=== PATIENT | male | born 1980 ===

== ENCOUNTER 2018-01-22 11:11 | Observation (INO) | payer MEDICAID, OTHER ==
[2018-01-22 11:40] LABS: BASO % 0.3 % (0.0-2.0); EOS # 0.1 K/uL (0.0-0.7); EOS % 2.1 % (0.0-4.0); HEMOGLOBIN 14.6 g/dL (12.0-18.0); LYMPH # 2.2 K/uL (1.0-4.3); LYMPH % 42.3 % (20.0-40.0); MEAN CELL VOLUME 88.6 fL (80.0-94.0); MEAN CORPUSCULAR HEMOGLOBIN 30.6 pg (27.0-31.0); MEAN CORPUSCULAR HGB CONC 34.6 g/dL (33.0-37.0); MEAN PLATELET VOLUME 8.7 fL (7.2-11.7); MONO # 0.5 K/uL (0.0-0.8); MONO % 8.9 % (0.0-10.0); NEUT # 2.4 K/uL (1.8-7.0); NEUT % 46.4 % (50.0-75.0); RBC 4.77 Mil/uL (4.40-5.90); WHITE BLOOD COUNT 5.2 K/uL (4.8-10.8)
--- NOTE | 2018-01-22 11:40 | C.PDOC ---
History Of Present Illness Patient BIBA for chest pain and possible abnornal EKG from a medical clinic. Patient states he has been having intermittent left sided sharp , nonradiating chest pain for the last 6 months, worse in the last 3 weeks. Patient was being seen today at a clinic where he had outpatient blood work done, was having chest pain and whyen EKG was done clinic called [id number]. Patient given PO ASA and SL nitro in the field, no improvement of chest pain with nitro. He denies SOB, palpitations, abdominal pain, nausea/vomiting. Time Seen by Provider: 01/22/18 11:17 Chief Complaint (Nursing): Chest Pain History Per: Patient History/Exam Limitations: no limitations Onset/Duration Of Symptoms: Days Current Symptoms Are (Timing): Still Present Severity: Mild Quality: "Pain" Past Medical History Reviewed: Historical Data, Nursing Documentation, Vital Signs Vital Signs: Last Vital Signs Temp 98.6 F 01/22/18 11:17 Pulse 65 01/22/18 11:17 Resp 18 01/22/18 11:17 BP 114/66 01/22/18 11:17 Pulse Ox 96 01/22/18 12:34 - Medical History PMH: Hyperlipidemia Family History: States: Diabetes (father) - Social History Hx Alcohol Use: No Hx Substance Use: No - Immunization History Hx Tetanus Toxoid Vaccination: No Hx Influenza Vaccination: Yes Hx Pneumococcal Vaccination: No Review Of Systems Constitutional: Negative for: Fever, Chills Cardiovascular: Positive for: Chest Pain. Negative for: Palpitations Respiratory: Negative for: Cough, Shortness of Breath Gastrointestinal: Negative for: Nausea, Vomiting, Abdominal Pain, Diarrhea Physical Exam - Physical Exam Appears: Well, Non-toxic, No Acute Distress Head: Normacephalic Eye(s): bilateral: Normal Inspection Oral Mucosa: Moist Cardiovascular: Rhythm Regular Respiratory: Normal Breath Sounds, No Rales, No Rhonchi, No Wheezing Gastrointestinal/Abdominal: Normal Exam, Bowel Sounds, Soft, No Tenderness Extremity: Normal ROM, No Pedal Edema, No Calf Tenderness Pulses: Left Dorsalis Pedis: Normal, Right Dorsalis Pedis: Normal Neurological/Psych: Oriented x3 ED Course And Treatment - Laboratory Results Result Diagrams: 01/22/18 11:36 01/22/18 11:36 ECG: Interpreted By Me, Viewed By Me (NSR 62 bpm, normal axis, no acute ST/T wave changes) ECG Interpretation: Normal O2 Sat by Pulse Oximetry: 96 (RA) Pulse Ox Interpretation: Normal - Other Rad CXR X-Ray: Viewed By Me, Read By Radiologist Interpretation: Accession No. : [id number]. Patient Name / ID : FOLEY / [id number]. Exam Date : 01/22/2018 11:40:55 ( Approved ). Study Comment : Sex / Age : M / [id number]. Creator : Sean Grewal MD. Dictator : Sean Grewal MD. Database Report Writer : Car Repairer Pullman : Sean Grewal MD. Approver2 : Report Date : 01/22/2018 12:11:43. My Comment : . Date of service: 01/22/2018. PROCEDURE: CHEST RADIOGRAPH, 1 VIEW. HISTORY: CP. COMPARISON: None available. FINDINGS: LUNGS: Clear. PLEURA: No pneumothorax or pleural fluid seen. CARDIOVASCULAR: Normal. OSSEOUS STRUCTURES: No significant abnormalities. VISUALIZED UPPER ABDOMEN: Normal. OTHER FINDINGS: None. IMPRESSION: No active disease. Progress Note: Blood work, CXR, EKG ordered and reviewed. ASA and nitro given in the field. Patient has outpatient blood work with him confirming elevated lipids/triglycerides. Disposition - Disposition Forms: [employer] ([place])
[2018-01-22 11:48] LABS: INR 1.1
[2018-01-22 11:52] LABS: ALB/GLOB RATIO 1.3 (1.0-2.1); ALBUMIN 4.2 g/dL (3.5-5.0); ALT/SGPT 96 U/L (21-72); AST/SGOT 66 U/L (17-59); BLOOD UREA NITROGEN 11 mg/dL (9-20); GFR AFRICAN-AMERICAN > 60; GFR NON-AFRICAN AMERICAN > 60
[2018-01-22 12:04] LABS: CK-MB 1.74 ng/mL (0.0-3.38)
--- NOTE | 2018-01-22 12:13 | RAD ---
Date of service: 01/22/2018 PROCEDURE: CHEST RADIOGRAPH, 1 VIEW HISTORY: CP COMPARISON: None available. FINDINGS: LUNGS: Clear. PLEURA: No pneumothorax or pleural fluid seen. CARDIOVASCULAR: Normal. OSSEOUS STRUCTURES: No significant abnormalities. VISUALIZED UPPER ABDOMEN: Normal. OTHER FINDINGS: None. IMPRESSION: No active disease.
[2018-01-22 14:17] LABS: BARBITURATES, UR NEGATIVE (NEGATIVE); BENZODIAZEPINES, UR NEGATIVE (NEGATIVE); OPIATES, UR NEGATIVE (NEGATIVE); PHENCYCLIDINE, UR NEGATIVE (NEGATIVE)
--- NOTE | 2018-01-22 17:51 | CP.PCM.HP ---
<Tiara Valiente - Last Filed: 01/22/18 16:31> History of Present Illness - History of Present Illness History of Present Illness: cc: chest pain Mr. Mares is a 37yo male who came up from the clinic for abnormal EKG and 6 months of chest pain, worsening over the last 3 weeks. The constant tight pressure is rated at a 6/10 with pinches 3-4/day increasing the pain to 9/10. The pain is pinpoint without radiation on the left midclavicular space directly beneath the rib in the 5th intercostal space. Deep inspiration makes it worse, but calming breaths make it better. Admits to his vision blurring occasionally associated with the chest pain. His daughter had the flu 3 months ago, resolved completely. Admits to intermittent bilateral numbness and tingling and chronic back Denies fever, chills, sweating, diaphoresis, palpitations, cough, shortness of breath, nausea, vomiting, weakness, dizziness, headache. Denies recent travel, sick contacts, changes in urination, saddle anesthesia, loss of bowel and bladder control. PMH: denies PSHx: none Home Meds: none Allergies: NKA Social: denies ever smoking, alcohol, illicit drugs FHx: father-HTN, DM2, CAD with stents age 58, brother-HLD, DM2, brother-DM2 PMD: Yaneth Allred Present on Admission - Present on Admission Any Indicators Present on Admission: No Review of Systems - Constitutional Constitutional: Weight Loss. absent: Chills, Excessive Sweating, Fever, Headache, Night Sweats - EENT Eyes: Blurred Vision. absent: Blind Spots, Diplopia, Dry Eye, Exophthalmos, Floaters, Itchy Eyes, Pain, Requires Corrective Lenses, Spots in Vision, Tunnel Vision Ears: absent: Decreased Hearing, Ear Discharge, Ear Pain, Tinnitus Nose/Mouth/Throat: absent: Epistaxis, Nasal Congestion, Nasal Discharge, Nasal Obstruction, Bleeding Gums, Dysphagia, Neck Pain - Cardiovascular Cardiovascular: Chest Pain, Chest Pain at Rest, Chest Pain with Activity. absent: Claudication, Diaphoresis, Dyspnea, Dyspnea on Exertion, Edema, Irregular Heart Rhythm, Pain Radiating to Arm/Neck/Jaw, Lightheadedness, Palpitations, Paroxysmal Nocturnal Dyspnea, Pedal Edema, Radiating Pain, Rapid Heart Rate - Respiratory Respiratory: Snoring, Pain on Inspiration. absent: Cough, Dyspnea, Hemoptysis, Dyspnea on Exertion, Wheezing - Gastrointestinal Gastrointestinal: absent: Abdominal Pain, Bloating, Change in Bowel Habits, Change in Stool Character, Constipation, Cramping, Diarrhea, Hematemesis, Hematochezia, Nausea, Vomiting - Genitourinary Genitourinary: absent: Change in Urinary Stream, Difficulty Urinating, Hematuria , Nocturia, Urinary Incontinence, Urinary Frequency, Urinary Hesitance, Urinary Urgency, Freq UTI - Musculoskeletal Musculoskeletal: Back Pain, Numbness, Tingling. absent: Abnormal Gait, Muscle Cramps Additional comments: chronic LBP - Integumentary Integumentary: Dry Skin. absent: Change in Hair, Change in Pigmentation, Pruritus, Rash, Skin Pain, Skin Ulcer, Sores, Swelling, Unusual Bruising, Wounds - Neurological Neurological: Numbness, Tingling. absent: Abnormal Gait, Confusion, Disequilibrium, Dizziness, Focal Weakness, Paresthesias Additional comments: bilateral numbness and tingling below both knees down leg - Psychiatric Psychiatric: absent: Behavioral Changes, Change in Appetite, Confusion, Difficulty Concentrating, Suicidal Ideation - Endocrine Endocrine: absent: Cold Intolorance, Excessive Sweating, Fatigue, Flushing, Heat Intolorance, Palpitations, Polyphagia - Hematologic/Lymphatic Hematologic: absent: Easy Bleeding, Easy Bruising Past Patient History - Past Social History Smoking Status: Never Smoked Alcohol: None Drugs: Denies - CARDIAC Hx Cardiac Disorders: No - PULMONARY Hx Respiratory Disorders: No - NEUROLOGICAL Hx Neurological Disorder: No - RENAL Hx Chronic Kidney Disease: No - PSYCHIATRIC Hx Substance Use: No - SURGICAL HISTORY Hx Surgeries: No - ANESTHESIA Hx Anesthesia: No Meds Allergies/Adverse Reactions: Allergies Allergy/AdvReac Type Severity Reaction Status Date / Time No Known Allergies Allergy Verified 01/22/18 11:23 Physical Exam - Constitutional Appears: Non-toxic, No Acute Distress - Head Exam Head Exam: ATRAUMATIC, NORMOCEPHALIC - Eye Exam Eye Exam: EOMI, Normal appearance, PERRL - ENT Exam ENT Exam: Mucous Membranes Moist, Normal Exam - Neck Exam Neck exam: Positive for: Normal Inspection. Negative for: Lymphadenopathy, Tenderness, Thyromegaly - Respiratory Exam Respiratory Exam: Clear to Auscultation Bilateral, NORMAL BREATHING PATTERN. absent: Rales, Rhonchi, Wheezes - Cardiovascular Exam Cardiovascular Exam: REGULAR RHYTHM, +S1, +S2. absent: Clicks, Systolic Murmur Additional comments: reproducible pain upon palpation on the lower border of rib 6 in 5th intercostal space, midclavicular. not worsened by rotation - GI/Abdominal Exam GI & Abdominal Exam: Normal Bowel Sounds, Soft. absent: Tenderness - Rectal Exam Additional comments: No gross bleeding. No evidence of hemorrhoids or other source of blood on URVASHI - Extremities Exam Extremities exam: Positive for: normal capillary refill, normal inspection, pedal pulses present Additional comments: line on both right and left antecubital fossa describes no numbness and tingling at the time - Neurological Exam Neurological exam: Alert, CN II-XII Intact, Normal Gait, Oriented x3, Reflexes Normal Additional comments: triceps and patellar reflexes intact bilaterally - Skin Skin Exam: Dry, Intact, Normal Color, Warm Results - Vital Signs Recent Vital Signs: Last Vital Signs Temp 98 F 01/22/18 16:15 Pulse 65 01/22/18 16:15 Resp 20 01/22/18 16:15 BP 111/71 01/22/18 16:15 Pulse Ox 96 01/22/18 16:15 - Labs Result Diagrams: 01/22/18 11:36 01/22/18 11:36 Labs: Laboratory Results - last 24 hr 01/22/18 01/22/18 01/22/18 11:36 11:36 11:36 WBC 5.2 RBC 4.77 Hgb 14.6 Hct 42.3 MCV 88.6 MCH 30.6 MCHC 34.6 RDW 14.0 Plt Count 170 MPV 8.7 Neut % (Auto) 46.4 L Lymph % (Auto) 42.3 H [place] % (Auto) 8.9 Eos % (Auto) 2.1 Baso % (Auto) 0.3 Neut # (Auto) 2.4 Lymph # (Auto) 2.2 [place] # (Auto) 0.5 Eos # (Auto) 0.1 Baso # (Auto) 0.0 PT 12.0 INR 1.1 APTT 35 H D-Dimer, Quantitative Sodium 139 Potassium 4.1 Chloride 103 Carbon Dioxide 27 Anion Gap 13 BUN 11 Creatinine 0.9 Est GFR ( Amer) > 60 Est GFR (Non-Af Amer) > 60 POC Glucose (mg/dL) Random Glucose 94 Calcium 9.0 Total Bilirubin 1.1 AST 66 H D ALT 96 H Alkaline Phosphatase 65 Total Creatine Kinase 523 H CK-MB (Mass) 1.74 Troponin I < 0.0120 Total Protein 7.3 Albumin 4.2 Globulin 3.1 Albumin/Globulin Ratio 1.3 Urine Opiates Screen Urine Methadone Screen Ur Barbiturates Screen Ur Phencyclidine Scrn Ur Amphetamines Screen U Benzodiazepines Scrn U Oth Cocaine Metabols U Cannabinoids Screen 01/22/18 01/22/18 01/22/18 11:50 13:39 14:03 WBC RBC Hgb Hct MCV MCH MCHC RDW Plt Count MPV Neut % (Auto) Lymph % (Auto) [place] % (Auto) Eos % (Auto) Baso % (Auto) Neut # (Auto) Lymph # (Auto) [place] # (Auto) Eos # (Auto) Baso # (Auto) PT INR APTT D-Dimer, Quantitative < 200 Sodium Potassium Chloride Carbon Dioxide Anion Gap BUN Creatinine Est GFR ( Amer) Est GFR (Non-Af Amer) POC Glucose (mg/dL) 90 Random Glucose Calcium Total Bilirubin AST ALT Alkaline Phosphatase Total Creatine Kinase CK-MB (Mass) Troponin I Total Protein Albumin Globulin Albumin/Globulin Ratio Urine Opiates Screen Negative Urine Methadone Screen Negative Ur Barbiturates Screen Negative Ur Phencyclidine Scrn Negative Ur Amphetamines Screen Negative U Benzodiazepines Scrn Negative U Oth Cocaine Metabols Negative U Cannabinoids Screen Negative Assessment & Plan (1) Atypical chest pain Assessment and Plan: Long standing chest pain, reproducible upon palpation. Lipid panel (06/24/17) TG 201 Chol 205 LDL 112 HDL 48 HbA1c (06/24/17) 5.5 lipid panel: f/u TSH: f/u free T4: f/u ROMIs and EKGs negative for ACS x2. f/u 3rd at 1930 ASA 81mg po daily ibuprofen 600mg po q6h prn rosuvastatin 10mg po hs Cardio consulted: Dr. Syed - help appreciated ASHWIN IFA screen: f/u RF: f/u Status: Acute (2) Elevated CK Assessment and Plan: 523 on admission maintenance fluids: 1L NS @ 147ml/hr Monitor. Status: Acute (3) Elevated LFTs Assessment and Plan: AST 66 ALT 96 on admission Monitor. Status: Acute (4) Sleep apnea Assessment and Plan: has prescription for sleep study outpatient Will give supplemental O2 or CPAP if O2 sat drops Status: Chronic (5) Prophylactic measure Assessment and Plan: DVT: BMI>30 -> bilateral SCDs GI: Pepcid 20mg po bid Heart healthy 2gNa diet Status: Acute <Serafin Frank Betzaida - Last Filed: 01/23/18 21:08> Results - Vital Signs Recent Vital Signs: Last Vital Signs Temp 97.9 F 01/23/18 15:40 Pulse 70 01/23/18 15:40 Resp 17 01/23/18 15:40 BP 127/78 01/23/18 15:40 Pulse Ox 97 01/23/18 15:40 - Labs Result Diagrams: 01/23/18 08:32 01/23/18 08:32 Labs: Laboratory Results - last 24 hr 01/22/18 01/23/18 01/23/18 20:13 08:32 08:32 WBC 4.7 L RBC 4.78 Hgb 14.7 Hct 43.2 MCV 90.4 MCH 30.8 MCHC 34.1 RDW 13.5 Plt Count 160 MPV 9.5 Neut % (Auto) 50.5 Lymph % (Auto) 36.6 [place] % (Auto) 10.2 H Eos % (Auto) 2.4 Baso % (Auto) 0.3 Neut # (Auto) 2.4 Lymph # (Auto) 1.7 [place] # (Auto) 0.5 Eos # (Auto) 0.1 Baso # (Auto) 0.0 Sodium 141 Potassium 4.3 Chloride 106 Carbon Dioxide 25 Anion Gap 14 BUN 10 Creatinine 0.8 Est GFR ( Amer) > 60 Est GFR (Non-Af Amer) > 60 Random Glucose 101 Calcium 8.9 Total Bilirubin 1.5 H AST 52 ALT 85 H Alkaline Phosphatase 65 Total Creatine Kinase 269 H Troponin I < 0.0120 Total Protein 6.9 Albumin 4.0 Globulin 2.8 Albumin/Globulin Ratio 1.4 Triglycerides 203 H Cholesterol 177 LDL Cholesterol Direct 113 HDL Cholesterol 31 Free T4 TSH 3rd Generation 1.05 01/23/18 08:32 WBC RBC Hgb Hct MCV MCH MCHC RDW Plt Count MPV Neut % (Auto) Lymph % (Auto) [place] % (Auto) Eos % (Auto) Baso % (Auto) Neut # (Auto) Lymph # (Auto) [place] # (Auto) Eos # (Auto) Baso # (Auto) Sodium Potassium Chloride Carbon Dioxide Anion Gap BUN Creatinine Est GFR ( Amer) Est GFR (Non-Af Amer) Random Glucose Calcium Total Bilirubin AST ALT Alkaline Phosphatase Total Creatine Kinase Troponin I Total Protein Albumin Globulin Albumin/Globulin Ratio Triglycerides Cholesterol LDL Cholesterol Direct HDL Cholesterol Free T4 0.83 TSH 3rd Generation Attending/Attestation - Attestation I have personally seen and examined this patient.: Yes I have fully participated in the care of the patient.: Yes I have reviewed all pertinent clinical information: Yes
[2018-01-22] MEDS: Sodium Chloride 0.9% 1,000 ML IV SCH (19:04)
--- NOTE | 2018-01-23 01:24 | CON ---
DATE: 01/22/2018 CARDIOLOGY CONSULTATION HISTORY OF PRESENT ILLNESS: The patient is a 37-year-old male, originally from [facility] who has no significant past medical history, presents because yesterday sharp left-sided chest pain, nonradiating and not associated with shortness of breath or diaphoresis. The patient is unaware of any prior cardiac history. The patient denies any recent chest trauma. The patient denies any recent fever or chills. SOCIAL HISTORY: Nonsmoker. Nondrinker. He works as a geriatric nurse assistant. He is with two young children. MEDICATIONS: The patient is on no medications at home. PAST MEDICAL HISTORY: Not significant. PHYSICAL EXAMINATION: GENERAL: The patient is a middle-aged male who does not appear to be in acute distress. VITAL SIGNS: Blood pressure 111/67, heart rate 58, temperature 98.6, respirations 12. HEENT: Normocephalic. NECK: No JVD. CHEST: Clear. HEART: S1 and S2 are regular. No gallop or pericardial rub. ABDOMEN: Soft. EXTREMITIES: No edema. No calf tenderness. IMAGING: Reviewed old EKGs, the ones were done in the field and one that was done in the emergency room revealed sinus rhythm with mild sinus bradycardia, early repolarization pattern; however, changes of pericarditis could not be excluded. Injury pattern is very unlikely because of the persistence of the pattern of ST elevation over a long period of time. Chest x-ray revealed prominent bronchovascular markings. LABORATORY DATA: SMA-7 is within normal limit. AST and ALT are 66 and 96 respectively. One set of troponin is negative. Total creatine kinase 523. INR is 1.1, PTT is 35. Hemoglobin, hematocrit, white count, and platelet count are within normal limit. ASSESSMENT: 1. Chest pain, unlikely it is myocardial injury. 2. Rule out acute pericarditis. RECOMMENDATIONS: Start aspirin at 81 mg once a day, Crestor 20 mg once a day. Obtain an echocardiogram, serum D-dimer, rheumatoid factor, and ASHWIN titers. Navin Syed MD
[2018-01-23] MEDS: Sodium Chloride 0.9% 1,000 ML IV SCH ×3 (02:40→15:43)
[2018-01-23 07:47] VITALS: O2SAT 97
[2018-01-23 08:56] LABS: BASO % 0.3 % (0.0-2.0); EOS # 0.1 K/uL (0.0-0.7); EOS % 2.4 % (0.0-4.0); HEMOGLOBIN 14.7 g/dL (12.0-18.0); LYMPH # 1.7 K/uL (1.0-4.3); LYMPH % 36.6 % (20.0-40.0); MEAN CELL VOLUME 90.4 fL (80.0-94.0); MEAN CORPUSCULAR HEMOGLOBIN 30.8 pg (27.0-31.0); MEAN CORPUSCULAR HGB CONC 34.1 g/dL (33.0-37.0); MEAN PLATELET VOLUME 9.5 fL (7.2-11.7); MONO # 0.5 K/uL (0.0-0.8); MONO % 10.2 % (0.0-10.0); NEUT # 2.4 K/uL (1.8-7.0); NEUT % 50.5 % (50.0-75.0); RBC 4.78 Mil/uL (4.40-5.90); RED CELL DISTRIBUTION WIDTH 13.5 % (11.5-14.5); WHITE BLOOD COUNT 4.7 K/uL (4.8-10.8)
[2018-01-23 09:12] LABS: ALB/GLOB RATIO 1.4 (1.0-2.1); ALT/SGPT 85 U/L (21-72); AST/SGOT 52 U/L (17-59); BLOOD UREA NITROGEN 10 mg/dL (9-20); CALCIUM 8.9 mg/dl (8.6-10.4); GFR AFRICAN-AMERICAN > 60; GFR NON-AFRICAN AMERICAN > 60; HDL CHOLESTEROL 31 mg/dL (30-70)
[2018-01-23 09:21] LABS: LDL CHOLESTEROL 113 mg/dL (0-129)
--- NOTE | 2018-01-23 09:38 | CP.PCM.PN ---
Subjective - Date & Time of Evaluation Date of Evaluation: 01/23/18 Time of Evaluation: 09:38 Objective - Vital Signs/Intake and Output Vital Signs (last 24 hours): Temp Pulse Resp BP Pulse Ox 97.8 F 54 L 20 118/71 97 01/23/18 07:00 01/23/18 07:35 01/23/18 07:00 01/23/18 07:00 01/23/18 07:00 - Medications Medications: Current Medications Aspirin (Aspirin Chewable) 81 mg PO DAILY [facility] Last Admin: 01/23/18 09:02 Dose: 81 mg Famotidine (Pepcid) 20 mg PO BID [facility] Last Admin: 01/23/18 09:02 Dose: 20 mg Heparin Sodium (Porcine) (Heparin) 5,000 units SC Q12 [facility] Last Admin: 01/23/18 09:02 Dose: 5,000 units Sodium Chloride (Sodium Chloride 0.9%) 1,000 mls @ 147 mls/hr IV .[id number] [facility] Last Admin: 01/23/18 08:41 Dose: 147 mls/hr Ibuprofen (Motrin Tab) 600 mg PO Q6H PRN PRN Reason: Pain, moderate (4-7) Last Admin: 01/22/18 18:32 Dose: 600 mg Rosuvastatin Calcium (Crestor) 10 mg PO HS [facility] Last Admin: 01/22/18 21:26 Dose: 10 mg - Labs Labs: 01/23/18 08:32 01/23/18 08:32 PT 12.0 SECONDS (9.7-12.2) 01/22/18 11:36 INR 1.1 01/22/18 11:36 APTT 35 SECONDS (21-34) H 01/22/18 11:36
[2018-01-23 16:15] VITALS: BP 127/78; PULSE 70; RESP 17; TEMP 97.9
--- NOTE | 2018-01-23 20:40 | PN ---
DATE: 01/23/2018 SUBJECTIVE: The patient denies any chest pain or shortness of breath. No reported arrhythmia. PHYSICAL EXAMINATION: VITAL SIGNS: Blood pressure 118/71, heart rate 55, temperature 97.8, respirations 20. HEENT: Normocephalic. CHEST: Clear. HEART: S1 and S2, regular. ABDOMEN: Soft. EXTREMITIES: No edema and no calf tenderness. IMAGING: Old EKGs revealed sinus rhythm with early repolarization present. Urine drug screen is negative. SMA-7 is within normal limits today. Lipid profile is within normal limits except for triglycerides of 203. Three sets of troponins are negative. D-dimer is within normal limits. I did review the echocardiographic study which was unremarkable. TSH and free T4 are both within normal limits. ASSESSMENT: Atypical chest pain, most likely musculoskeletal chest pain and it is unlikely pericarditis. RECOMMENDATIONS: Continue current aspirin, Crestor, and ibuprofen. Follow up connective tissue disease markers as an outpatient. Case was discussed with Dr. Serafin Frank. The patient can be discharged from the cardiac point of view. Navin Syed MD
--- NOTE | 2018-01-23 21:09 | CP.PCM.DIS ---
Provider - Provider Date of Admission: 01/22/18 12:49 Attending physician: Serafin Frank MD Consults: Dr. Syed, cardiology Time Spent in preparation of Discharge (in minutes): 45 Diagnosis - Discharge Diagnosis (1) Atypical chest pain Status: Acute Comment: Chest pain likely secondary to costochondritis. (2) Elevated CK Status: Acute (3) Sleep apnea Status: Chronic Hospital Course - Lab Results Lab Results: Most Recent Lab Values WBC 4.7 K/uL (4.8-10.8) L 01/23/18 08:32 RBC 4.78 Mil/uL (4.40-5.90) 01/23/18 08:32 Hgb 14.7 g/dL (12.0-18.0) 01/23/18 08:32 Hct 43.2 % (35.0-51.0) 01/23/18 08:32 MCV 90.4 fL (80.0-94.0) 01/23/18 08:32 MCH 30.8 pg (27.0-31.0) 01/23/18 08:32 MCHC 34.1 g/dL (33.0-37.0) 01/23/18 08:32 RDW 13.5 % (11.5-14.5) 01/23/18 08:32 Plt Count 160 K/uL (130-400) 01/23/18 08:32 MPV 9.5 fL (7.2-11.7) 01/23/18 08:32 Neut % (Auto) 50.5 % (50.0-75.0) 01/23/18 08:32 Lymph % (Auto) 36.6 % (20.0-40.0) 01/23/18 08:32 [place] % (Auto) 10.2 % (0.0-10.0) H 01/23/18 08:32 Eos % (Auto) 2.4 % (0.0-4.0) 01/23/18 08:32 Baso % (Auto) 0.3 % (0.0-2.0) 01/23/18 08:32 Neut # (Auto) 2.4 K/uL (1.8-7.0) 01/23/18 08:32 Lymph # (Auto) 1.7 K/uL (1.0-4.3) 01/23/18 08:32 [place] # (Auto) 0.5 K/uL (0.0-0.8) 01/23/18 08:32 Eos # (Auto) 0.1 K/uL (0.0-0.7) 01/23/18 08:32 Baso # (Auto) 0.0 K/uL (0.0-0.2) 01/23/18 08:32 PT 12.0 SECONDS (9.7-12.2) 01/22/18 11:36 INR 1.1 01/22/18 11:36 APTT 35 SECONDS (21-34) H 01/22/18 11:36 D-Dimer, Quantitative < 200 ng/mlDDU (0-243) 01/22/18 14:03 Sodium 141 mmol/L (132-148) 01/23/18 08:32 Potassium 4.3 mmol/L (3.6-5.2) 01/23/18 08:32 Chloride 106 mmol/L (98-107) 01/23/18 08:32 Carbon Dioxide 25 mmol/L (22-30) 01/23/18 08:32 Anion Gap 14 (10-20) 01/23/18 08:32 BUN 10 mg/dL (9-20) 01/23/18 08:32 Creatinine 0.8 mg/dL (0.8-1.5) 01/23/18 08:32 Est GFR ( Amer) > 60 01/23/18 08:32 Est GFR (Non-Af Amer) > 60 01/23/18 08:32 POC Glucose (mg/dL) 90 mg/dL (65-110) 01/22/18 11:50 Random Glucose 101 mg/dL (75-110) 01/23/18 08:32 Calcium 8.9 mg/dl (8.6-10.4) 01/23/18 08:32 Total Bilirubin 1.5 mg/dL (0.2-1.3) H 01/23/18 08:32 AST 52 U/L (17-59) 01/23/18 08:32 ALT 85 U/L (21-72) H 01/23/18 08:32 Alkaline Phosphatase 65 U/L (38-126) 01/23/18 08:32 Total Creatine Kinase 269 U/L (55-170) H 01/23/18 08:32 CK-MB (Mass) 1.74 ng/mL (0.0-3.38) 01/22/18 11:36 Troponin I < 0.0120 ng/mL (0.00-0.120) 01/22/18 20:13 Total Protein 6.9 g/dL (6.3-8.3) 01/23/18 08:32 Albumin 4.0 g/dL (3.5-5.0) 01/23/18 08:32 Globulin 2.8 gm/dL (2.2-3.9) 01/23/18 08:32 Albumin/Globulin Ratio 1.4 (1.0-2.1) 01/23/18 08:32 Triglycerides 203 mg/dL (0-149) H 01/23/18 08:32 Cholesterol 177 mg/dL (0-199) 01/23/18 08:32 LDL Cholesterol Direct 113 mg/dL (0-129) 01/23/18 08:32 HDL Cholesterol 31 mg/dL (30-70) 01/23/18 08:32 Free T4 0.83 ng/dL (0.78-2.19) 01/23/18 08:32 TSH 3rd Generation 1.05 mIU/L (0.46-4.68) 01/23/18 08:32 Urine Opiates Screen Negative (NEGATIVE) 01/22/18 13:39 Urine Methadone Screen Negative (NEGATIVE) 01/22/18 13:39 Ur Barbiturates Screen Negative (NEGATIVE) 01/22/18 13:39 Ur Phencyclidine Scrn Negative (NEGATIVE) 01/22/18 13:39 Ur Amphetamines Screen Negative (NEGATIVE) 01/22/18 13:39 U Benzodiazepines Scrn Negative (NEGATIVE) 01/22/18 13:39 U Oth Cocaine Metabols Negative (NEGATIVE) 01/22/18 13:39 U Cannabinoids Screen Negative (NEGATIVE) 01/22/18 13:39 - Hospital Course Hospital Course: On Admission: Mr. Mares is a 37yo male who came up from the clinic for abnormal EKG and 6 months of chest pain, worsening over the last 3 weeks. The constant tight pressure is rated at a 6/10 with pinches 3-4/day increasing the pain to 9/10. The pain is pinpoint without radiation on the left midclavicular space directly beneath the rib in the 5th intercostal space. Deep inspiration makes it worse, but calming breaths make it better. Admits to his vision blurring occasionally associated with the chest pain. His daughter had the flu 3 months ago, resolved completely. Admits to intermittent bilateral numbness and tingling and chronic back Denies fever, chills, sweating, diaphoresis, palpitations, cough, shortness of breath, nausea, vomiting, weakness, dizziness, headache. Denies recent travel, sick contacts, changes in urination, saddle anesthesia, loss of bowel and bladder control. Hospital Course: Patient was admitted for chest pain. Initially there was suspicion of possible pericarditis due to improvement of chest pain with leaning forward. Cardiac enzymes were obtained and were negative x3. EKG showed no evidence of pericarditis. A chest XRay showed no active disease. Dr. Syed, cardiology was consulted and recommended a 2D echocardiogram. Echo was normal. Patient's pain was relieved with ibuprofen 600mg PO Q6H. Chest pain was likely secondary to costochondritis. Patient also noted to have Elevated CKMB and was given IV fluids. Patient is stable for discharge at time time. Instructions: Patient is stable for discharge per Dr. Angela Frank. Patient is to follow up with the [facility] in [facility] within 7-10 days of discharge. Patient is prescribed the following for pain: Ibuprofen 600mg take one tablet by mouth every 8 hours as needed for pain. -Do not take on empty stomach. Take after eating a meal. -Please keep well hydrated. Drink plenty of water to flush out your kidneys. Patient is to return to emergency room if symptoms recur or worsen. Please note this is a brief summary of hospitalization. For full record, review EMR. Discharge Exam - Head Exam Head Exam: ATRAUMATIC, NORMOCEPHALIC - Eye Exam Eye Exam: EOMI, Normal appearance - ENT Exam ENT Exam: Mucous Membranes Moist - Respiratory Exam Respiratory Exam: NORMAL BREATHING PATTERN, UNREMARKABLE. absent: Chest Wall Tenderness, Rales, Rhonchi, Wheezes - Cardiovascular Exam Cardiovascular Exam: REGULAR RHYTHM, +S1, +S2 - GI/Abdominal Exam GI & Abdominal Exam: Normal Bowel Sounds, Soft. absent: Distended, Firm, Guarding, Tenderness - Extremities Exam Extremities exam: full ROM, normal inspection - Neurological Exam Neurological exam: Alert, Oriented x3 - Psychiatric Exam Psychiatric exam: Normal Mood - Skin Skin Exam: Dry, Intact, Normal Color, Warm Discharge Plan - Discharge Medications Prescriptions: Ibuprofen [Motrin Tab] 600 mg PO Q8H PRN #90 tab PRN Reason: Pain, Moderate (4-7) - Follow Up Plan Condition: GOOD Disposition: HOME/ ROUTINE Instructions: Heart Healthy Diet, Chest Pain That Is Not Caused by the Heart ( DC), Chest Pain (DC), Ibuprofen Additional Instructions: Patient is stable for discharge per Dr. Angela Frank. Patient is to follow up with the [facility] in [facility] within 7-10 days of discharge. Patient is prescribed the following for pain: Ibuprofen 600mg take one tablet by mouth every 8 hours as needed for pain. Do not take on empty stomach. Take after eating a meal. Please keep well hydrated. Drink plenty of water if taking ibuprofen. Patient is to return to emergency room if patient is to experience worsening of symptoms. Referrals: [facility] [Outside]
--- NOTE | 2018-01-24 12:08 | CARD ---
APPROVED REPORT Date of service: 01/22/2018 EKG Measurement Heart [id number] <Conclusion> Normal sinus rhythm Normal ECG
--- NOTE | 2018-01-24 12:09 | CARD ---
APPROVED REPORT Date of service: 01/22/2018 EKG Measurement Heart [id number] <Conclusion> Normal sinus rhythm Normal ECG
--- NOTE | 2018-01-24 12:09 | CARD ---
APPROVED REPORT Date of service: 01/22/2018 EKG Measurement Heart [id number] [id number] <Conclusion> Normal sinus rhythm Inferior infarct, possibly acute? can not be r/o. suggest repeat Abnormal ECG
== END 2018-01-23 18:10 | disposition home or self-care (01) ==
LOC: C.ER 11:11 → C.9E 12:49 → C.5S 14:11
PROVIDERS: ADMIT Family Medicine; ATTEND Family Medicine
DX: R07.89 Other chest pain (principal); R74.8 Abnormal levels of other serum enzymes; G47.30 Sleep apnea, unspecified; E78.5 Hyperlipidemia, unspecified
CPT/HCPCS: 36415; 71045; 80053; 80061; 82550; 82553; 82948; 83520; 84439; 84443; 84484; 85025; 85378; 85610; 85730; 86039; 93306; 99285; G0378; G0480; J1644; J7030